=== PATIENT | male | born 1980 | race Caucasian/White ===

== ENCOUNTER 2017-09-22 09:04 | Emergency (ER) | payer MEDICAID ==
[2017-09-22] MEDS ORDERED: Aspirin Low Dose CHEW TAB* 81 MG PO ONE (09:51)
[2017-09-22] MEDS ORDERED: Aspirin EC Low Dose* 81 MG TAB.EC ONE ×2 (09:56)
[2017-09-22] MEDS: Aspirin EC Low Dose* 81 MG TAB.EC PO ONE ×2 (09:57→11:16)
[2017-09-22 10:01] LABS: Hematocrit 45 % (42-52); Hemoglobin 14.8 g/dl (14.0-18.0); Mean Corpuscular HGB Conc 33 g/dl (31-36); Mean Corpuscular Hemoglobin 28 pg (27-31); Mean Corpuscular Volume 84 fL (80-94); Mean Platelet Volume 8 um3 (7.4-10.4); Red Blood Count 5.33 10^6/ul (4.0-5.4); Red Cell Distribution Width 13 % (10.5-15); White Blood Count 7.5 10^3/ul (3.5-10.8)
[2017-09-22] MEDS ORDERED: Nitroglycerin TAB 0.4 MG* 0.4 MG TAB SL ONE (10:13)
--- NOTE | 2017-09-22 10:15 | RAD ---
INDICATION: Chest pain and left shoulder discomfort COMPARISON: None. TECHNIQUE: Single AP portable view of the chest was obtained. FINDINGS: Image quality is compromised due to the relative inferiority of a portable chest x-ray. The heart and mediastinum exhibit normal size and contour. The lungs are grossly clear. There is no evidence of a large pleural effusion. Visualized bones are normal for the patient's age. IMPRESSION: No radiographic evidence for acute cardiopulmonary abnormality on this portable chest x-ray.
[2017-09-22 10:18] LABS: Albumin 4.5 g/dL (3.2-5.2); BUN/Creatinine Ratio 19.8 (8-20); Calcium 9.2 mg/dL (8.6-10.3); EGFR African American 129.4 (>60); EGFR Non-African American 100.6 (>60); Globulin 2.2 g/dL (2-4); Potassium 3.9 mmol/L (3.5-5.0); Total Bilirubin 0.7 mg/dL (0.2-1.0); Total Protein 6.7 g/dL (6.4-8.9)
[2017-09-22] MEDS ORDERED: Iohexol 350* (CONTRAST) 500 ML MDV IV ONE (10:24)
--- NOTE | 2017-09-22 11:44 | RAD ---
STUDY: CT angiography of the aorta. INDICATION: The patient reports waking up with chest pain and shortness of breath exacerbated by taking a deep breath. COMPARISON: None. TECHNIQUE: Multidetector CT angiography of the aorta were obtained from the lung apices to the iliac bifurcation after the intravenous injection of 100 mL Omnipaque 350. Reformats were created in the coronal and sagittal planes. 3-D vascular imaging was created from the source images and reviewed as well. ANGIOGRAPHIC FINDINGS: There are no filling defects of the central or lobar pulmonary arteries. Timing of contrast prevents reliable evaluation of the segmental and more distal pulmonary artery branches. The aorta is normal in diameter and morphology. There is no active dissection or aneurysmal dilatation. The branch vessels of the arch of the aorta and branch vessels of the abdominal aorta are adequately patent. Incidentally noted is a left splenic artery that branches directly off of the abdominal aorta (axial image 121). The left gastric artery also appears to branch directly off of the aorta (axial image 121 and sagittal image 72). NON ANGIOGRAPHIC FINDINGS: Chest: The lungs are clear. There are no large pleural effusions. There is no mediastinal or hilar lymphadenopathy. The heart is grossly normal in appearance. Abdomen & Pelvis: The liver, spleen, pancreas and adrenal glands are grossly normal in appearance. The gallbladder is normal. The kidneys are normal in appearance without focal mass, calcification or signs of hydronephrosis. The renal cortices enhance promptly and symmetrically on arterial phase imaging. Evaluation of the gastrointestinal tract is limited without oral contrast. The visualized portions of the small and large bowel are not distended. There is no gross retroperitoneal or mesenteric lymphadenopathy at the visualized portions of the abdomen and upper pelvis. Multilevel degenerative changes of the thoracic and lumbar spine include loss of intervertebral disc height.There are no sinister bone lesions. IMPRESSION: 1. No filling defect in the centrilobular pulmonary arteries to indicate pulmonary embolism. 2. Normal CT angiography of the aorta and major branch vessels.
[2017-09-22 13:33] VITALS: BP 120/77
--- NOTE | 2017-09-22 17:58 | ED ---
Caridad Lopez Edward, scribed for Elijah Champion MD on 09/22/17 at 0921 . HPI Chest Pain - HPI Summary HPI Summary: 37 y/o male presents to the ED c/o CP starting this morning. Initially the CP was described as GERD-like mixed with pain from his L shoulder. Currently the pain is described as a dull ache that is waxing and waning, rated 3/10 in severity. Pt dislocated his L shoulder recently. The pt states the pain moves around from his L side chest to his L shoulder, neck and jaw. The chest tightness is aggravated with deep breaths. Associated sx: SOB this morning. Denies nausea, diaphoresis. FHx - father had an IA @ 42 and a blood clot in the lower part of his heart. Occasional smoker. - History of Current Complaint Chief Complaint: EDChestPainROMI Hx Obtained From: Patient Onset/Duration: Started Hours Ago, Still Present Initial Severity: Moderate Current Severity: Mild Pain Intensity: 3 Pain Scale Used: 0-10 Numeric Chest Pain Location: Left Lateral Chest Pain Radiates: Yes Chest Pain Radiates To:: Shoulder - L, Jaw, Neck Character: Dull/Aching, Tightness, Other: - "GERD-like mixed with L shoulder pain" Aggravating Factor(s): Deep Breaths Alleviating Factor(s): Nothing Associated Signs and Symptoms: Positive: Chest Pain, Shortness of Breath. Negative: Diaphoresis, Nausea - Allergy/Home Medications Allergies/Adverse Reactions: Allergies Allergy/AdvReac Type Severity Reaction Status Date / Time Sulfites Allergy Rash Verified 02/11/15 19:55 PMH/Surg Hx/FS Hx/Imm Hx Previously Healthy: Yes Cardiovascular History: Denies: Hx Myocardial Infarction Sensory History: Denies: Hx Legally Blind Infectious Disease History: No Infectious Disease History: Denies: Traveled Outside the [place] in Last 30 Days - Family History Known Family History: Positive: Other - Dad - blood clot @ heart, IA @ 42 - Social History Occupation: Employed Full-time Lives: Dormitory/Roommates Alcohol Use: Weekly Hx Substance Use: Yes Substance Use Type: Reports: Marijuana Hx Tobacco Use: Yes Smoking Status (MU): Smoker, Current Status Unknown Review of Systems Negative: Fever, Chills, Skin Diaphoresis Negative: Erythema Negative: Sore Throat Positive: Chest Pain Positive: Shortness Of Breath. Negative: Cough Negative: Abdominal Pain, Vomiting, Nausea Negative: dysuria, hematuria Negative: Myalgia, Edema Negative: Rash Neurological: Other - No dizziness All Other Systems Reviewed And Are Negative: Yes Physical Exam - Summary Physical Exam Summary: Constitutional: Well-developed, Well-nourished, Alert. (-) Distressed Skin: Warm, Dry HENT: Normocephalic; Atraumatic Eyes: Conjunctiva normal Neck: Musculoskeletal ROM normal neck. (-) JVD, (-) Stridor, (-) Tracheal deviation Cardio: Rhythm regular, rate normal, Heart sounds normal; Intact distal pulses; The pedal pulses are 2+ and symmetric. Radial pulses are 2+ and symmetric. (-) Murmur Pulmonary/Chest wall: Effort normal. (-) Respiratory distress, (-) Wheezes, (-) Rales. No reproducible pain. Abd: Soft, (-) Tenderness, (-) Distension, (-) Guarding, (-) Rebound Musculoskeletal: (-) Edema Lymph: (-) Cervical adenopathy Neuro: Alert, Oriented x3 Psych: Mood and affect Normal Triage Information Reviewed: Yes Vital Signs On Initial Exam: Initial Vitals Temp Pulse Resp BP Pulse Ox 97.6 F 60 16 124/80 100 09/22/17 09:08 09/22/17 09:08 09/22/17 09:08 09/22/17 09:08 09/22/17 09:08 Vital Signs Reviewed: Yes Diagnostics - Vital Signs Vital Signs Temp Pulse Resp BP Pulse Ox 09/22/17 09:08 97.6 F 60 16 124/80 100 - Laboratory Result Diagrams: 09/22/17 09:51 09/22/17 09:51 Lab Statement: Any lab studies that have been ordered have been reviewed, and results considered in the medical decision making process. - Radiology CXR Xray Interpretation: No Acute Changes - No radiographic evidence for acute cardiopulmonary abnormality on this portable chest x-ray. Radiology Interpretation Completed By: Radiologist - ED [facility]IC[facility] - CT CHEST/ABD CTA CT Interpretation: No Acute Changes - 1. No filling defect in the centrilobular pulmonary arteries to indicate pulmonary embolism. 2. Normal CT angiography of the aorta and major branch vessels. CT Interpretation Completed By: Radiologist - ED [facility]IC[facility] - EKG 1 EKG Interpretation: 09:22 - SR @ 60 BPM. NO STEMI. Re-Evaluation - Re-Evaluation 1 Re-Evaluation Time: 12:00 Change: Improved - Pt is pain free 2 Re-Evaluation Time: 13:30 Comment: Discuss plan of care Chest Pain Course/Dx - Course Assessment/Plan: 37 y/o male presents to the ED c/o CP starting this morning. Initially the CP was described as GERD-like mixed with pain from his L shoulder. Currently the pain is described as a dull ache that is waxing and waning, rated 3/10 in severity. Pt dislocated his L shoulder recently. The pt states the pain moves around from his L side chest to his L shoulder, neck and jaw. The chest tightness is aggravated with deep breaths. Associated sx: SOB this morning. Denies nausea, diaphoresis. FHx - father had an IA @ 42 and an aneurysm at his chest. Occasional smoker. EKG 09:22 - SR @ 60 BPM. NO STEMI. CXR SHOWS No radiographic evidence for acute cardiopulmonary abnormality on this portable chest x-ray. CHEST/ABD CTA SHOWS 1. No filling defect in the centrilobular pulmonary arteries to indicate pulmonary embolism. 2. Normal CT angiography of the aorta and major branch vessels. - Diagnoses Provider Diagnoses: Chest pain, unspecified Discharge - Discharge Plan Condition: Stable Disposition: HOME Patient Education Materials: Chest Pain (ED) Referrals: Tere Rice MD [Medical Doctor] - 3 Days (PLEASE F/U IN 2-3 DAYS) [facility] [Outside] - 3 Days (PLEASE F/U IN 2-3 DAYS) The documentation as recorded by the Caridad reyes Edward accurately reflects the service I personally performed and the decisions made by me, Elijah Champion MD.
== END 2017-09-22 13:32 | disposition home or self-care (01) ==
LOC: ED 09:04
DX: R07.9 Chest pain, unspecified (principal); R06.02 Shortness of breath; Z72.0 Tobacco use
CPT/HCPCS: 36415; 71010; 71275; 74175; 80053; 83605; 84484; 85025; 85379; 93005; 99283; A9270-GY; Q9967